=== PATIENT | female | born 2000 | race Caucasian/White ===

== ENCOUNTER 2024-12-25 11:33 | Emergency (ER) | payer BC, SELFPAY ==
[2024-12-25] VITALS (8 sets, daily range): BP systolic 118–156; BP diastolic 58–95; PULSE 84–86; BMI 25.4
[2024-12-25 11:48] LABS: Hematocrit 38.9 % (37.0-47.0); Hemoglobin 14.5 g/dL (12.0-16.0); Mean Corp Hgb Conc. 37.3 g/dL (33.0-37.0); Mean Corpuscular Volume 91.7 fL (81.0-99.0); Nucleated Red Blood Cells % 0 %; Platelet Count 186 10^3/uL (130-400); Red Cell Dist. Width 11.9 % (11.5-14.5)
[2024-12-25 12:14] LABS: HCG, Serum Qualitative Screen Negative
[2024-12-25 12:18] LABS: ALT (SGPT) 15 U/L (0-35); AST (SGOT) 22 U/L (14-36); Albumin 5.2 g/dl (3.5-5.0); Alkaline Phosphatase 55 U/L (38-126); Blood Urea Nitrogen 10 mg/dl (7-17); Calcium 10.3 mg/dl (8.4-10.2); Carbon Dioxide 22 mmol/L (22-30); Chloride 107 mmol/L (98-107); Glucose 117 mg/dl (70-99); Potassium 4.9 mmol/L (3.5-5.1); Sodium 138 mmol/L (135-145); Total Protein 8.1 g/dl (6.3-8.2); eGFR > 60.00
--- NOTE | 2024-12-25 15:04 | ED.GENMED ---
History of Present Illness
<Kavita Hayden MD, Resident - Last Filed: 12/25/24 17:02>
General
Chief Complaint: Dizziness
Source: patient
Exam Limitations: none
Time Seen by Provider: 12/25/24 15:02
Nursing documentation reviewed up to this point in time: agreed with
History of Present Illness
History of Present Illness:
24-year-old female with no significant past medical history comes to the ED due to dizziness that been going on for the past week. She says that this dizziness started this past Friday when she was at a [employer] democrat in [place]. Symptoms
started that Friday morning and persisted on the drive back. She describes that she was feeling nauseous, had diarrhea and some dizziness. The symptoms persisted throughout the week and then she ended up going to her PCP on Friday. She says
that they checked her urine and they only could find some dehydration. She says the symptoms are worse with looking down as well as while walking and when she is sitting watching TV the symptoms seem to resolve. She has not had any instances of
diarrhea or nausea since Friday. Right now she does not have any chest pain, shortness of breath, cough, any headaches, any difficulty movement. She does continue to have some dizziness.
Past History
<Kavita Hayden MD, Resident - Last Filed: 12/25/24 17:02>
Past History
ED Past Medical History: None
ED Past Surgical History: Other ([place] teeth)
Review of Systems
<Kavita Hayden MD, Resident - Last Filed: 12/25/24 17:02>
Review of Systems
Allergies reviewed?: Yes
Constitutional: Reports no symptoms
EENT: Reports no symptoms
Respiratory: Reports no symptoms
Cardiac: Reports no symptoms
ABD/GI: Reports nausea; Denies abdominal pain, vomiting or diarrhea
: Reports no symptoms
Musculoskeletal: Reports no symptoms
Skin: Reports no symptoms
Neurological: Reports dizzy; Denies headache or weakness
Endocrine: Reports no symptoms
Hematologic/Lymphatic: Reports no symptoms
Psychiatric: Reports no symptoms
Phy Exam
<Kavita Hayden MD, Resident - Last Filed: 12/25/24 17:02>
General Physical Exam
General Presentation: well appearing and mild distress
General Skin: warm and dry
General Habitus: normal
General Mental: alert
General Hydration: appears well hydrated
ENT Exam
ENT Exam: EOMI, TM's normal and normocephalic
Cardiovascular Exam
Cardiovascular Exam: regular rate/rhythm, no edema and no murmur
Pulmonary Exam
Pulmonary Exam: lungs clear, no respiratory distress, no crackles and no wheezing
Gastrointestinal Exam
Gastrointestinal Exam: normal bowel sounds, non tender, soft and non distended
Neurological Exam
Neurological Exam: alert, oriented x3, no motor deficits, no sensory deficits and speech normal
Cerebellar
Cerebellar Function: normal finger to nose, normal heel to estrella and normal Romberg test
Musculoskeletal Exam
Musculoskeletal Exam: full ROM and no edema
Skin Exam
Skin Exam: normal color and warm/dry
Psychiatric Exam
Psychiatric Exam: normal mood/affect
<Keyla Lux MD - Last Filed: 12/25/24 16:09>
Physical Exam
Physical Exam:
Physical Exam
General: no apparent distress, not acutely ill
Neck: supple.
Heart: s1/s2 regular rate and rhythm, no murmur.
Lungs: no acute respiratory distress. clear bilaterally
Abdomen: Soft, nontender
Neuro: alert and orientedx3. no focal neurological deficits. Extraocular muscles intact. Normal finger-nose. Steady gait. 5 out of 5 strength in all extremities.
Skin: no rash
Psychiatric: well kept. interactive and cooperative
Extremities: no edema. no calf tenderness. negative homans. good distal pulses
Course
<Kavita Hayden MD, Resident - Last Filed: 12/25/24 17:02>
Orders/Labs/Results
Orders:
Orders
12/25/24 11:39
Electrocardiogram (*1) Urgent
Reason for Study: Vertigo / Dizzy
EKG- Treatment ONCE
Test Result ONCE
12/25/24 11:43
Complete Blood Count/With Diff Urgent
Comprehensive Metabolic Panel Urgent
HCG, Serum Qualitative Screen Urgent
12/25/24 15:30
0.9% Sodium Chloride 500 ml [Nss] 500 ml IV BOLUS
Meclizine [Antivert] 25 mg PO NOW STA
12/25/24 16:01
Meclizine [Antivert] 25 mg PO NOW STA
12/25/24 16:02
Orthostatic VS- Treatment ONCE
Abnormal Lab Results
12/25/24
11:43
MCH 34.2 H pg
(27.0-31.0)
MCHC 37.3 H g/dL
(33.0-37.0)
Glucose 117 H mg/dl
(70-99)
Calcium 10.3 H mg/dl
(8.4-10.2)
Albumin 5.2 H g/dl
(3.5-5.0)
12/25/24 11:43
12/25/24 11:43
Vital Signs
Initial and Last Documented VS:
Initial Vital Signs
Temp Pulse Resp BP Pulse Ox
98.1 F 117 18 156/95 100
12/25/24 11:35 12/25/24 11:35 12/25/24 11:35 12/25/24 11:35 12/25/24 11:35
Last Documented Vital Signs
Temp Pulse Resp BP Pulse Ox
98.1 F 86 19 142/77 100
12/25/24 11:35 12/25/24 15:08 12/25/24 15:08 12/25/24 15:08 12/25/24 15:04
<Keyla Lux MD - Last Filed: 12/25/24 16:09>
Orders/Labs/Results
Orders:
Orders
12/25/24 11:39
Electrocardiogram (*1) Urgent
Reason for Study: Vertigo / Dizzy
EKG- Treatment ONCE
Test Result ONCE
12/25/24 11:43
Complete Blood Count/With Diff Urgent
Comprehensive Metabolic Panel Urgent
HCG, Serum Qualitative Screen Urgent
12/25/24 15:30
0.9% Sodium Chloride 500 ml [Nss] 500 ml IV BOLUS
Meclizine [Antivert] 25 mg PO NOW STA
12/25/24 16:01
Meclizine [Antivert] 25 mg PO NOW STA
12/25/24 16:02
Orthostatic VS- Treatment ONCE
Abnormal Lab Results
12/25/24
11:43
MCH 34.2 H pg
(27.0-31.0)
MCHC 37.3 H g/dL
(33.0-37.0)
Glucose 117 H mg/dl
(70-99)
Calcium 10.3 H mg/dl
(8.4-10.2)
Albumin 5.2 H g/dl
(3.5-5.0)
12/25/24 11:43
12/25/24 11:43
Vital Signs
Initial and Last Documented VS:
Initial Vital Signs
Temp Pulse Resp BP Pulse Ox
98.1 F 117 18 156/95 100
12/25/24 11:35 12/25/24 11:35 12/25/24 11:35 12/25/24 11:35 12/25/24 11:35
Last Documented Vital Signs
Temp Pulse Resp BP Pulse Ox
98.1 F 86 19 142/77 100
12/25/24 11:35 12/25/24 15:08 12/25/24 15:08 12/25/24 15:08 12/25/24 15:04
<Kavita Hayden MD, Resident - Last Filed: 12/25/24 17:02>
MDM/Problems Addressed
Differential Diagnosis Includes:
Vertigo, orthostatic hypotension, anemia, dehydration, electrolyte imbalance
MDM/Problems Addressed:
24-year-old female with no significant past medical history comes to the ED due to dizziness has been going on for the past week since Friday.
EKG normal sinus rhythm
CBC and CMP normal, no acute abnormality seen
test negative
Neurological exam negative for any cerebellar findings, was able to ambulate without issue, alongside finger-nose test was okay [id number] test was okay.
Will give IV fluids and 50 mg of Meclizine to see if that helps with her symptoms.
Symptoms have improved following medications and IV fluids
Patient will have to follow up with Physical Therapy in the outpatient setting for vestibular therapy for her BPPV.
Will give a script for Meclizine for management of symptoms.
<Keyla Lux MD - Last Filed: 12/25/24 16:09>
MDM/Problems Addressed
Differential Diagnosis Includes:
Benign positional vertigo, CVA, orthostatic hypotension, anemia, dehydration, electrolyte imbalance
<Kavita Hayden MD, Resident - Last Filed: 12/25/24 17:02>
*Pulse Oximetry
SaO2: 100
Oxygen Mode of Delivery: Room air
Patient hypoxic: no
*Critical Care Note
Total Time (30-74mins, 75-104mins- exclusive of procedures): Not Applicable
<Keyla Lux MD - Last Filed: 12/25/24 16:09>
*Machine Or Machinery Mechanic Interpretation
Rate: normal
Interpretation: normal
Rhythm: sinus
Data Reviewed
Source: patient
ED Attending Note
<Kavita Hayden MD, Resident - Last Filed: 12/25/24 17:02>
-
Portions of this chart may have been created with voice recognition software.� Occasional wrong word or��sound alike� substitutions may have occurred due to the inherent limitations of voice recognition software.
<Keyla Lux MD - Last Filed: 12/25/24 16:09>
ED Attending Note
I performed a history and physical exam of patient and discussed management with resident, I reviewed resident's note and agree with documented findings and plan of care.: Yes
ED Attending Note:
Patient appears well and comfortable. She has a normal neurological exam. She has a steady gait. She describes that movement makes her equilibrium feel off and it is associated with nausea. Additionally, patient reports that on the car ride
here, her symptoms were very much exacerbated. I feel it is likely she has acute benign positional vertigo. Given she has a normal neurological exam, it is unlikely she has a stroke. Patient will be given meclizine and will be encouraged to
follow-up with vestibular physical therapy if symptoms persist.
Discharge Plan
Departure
Patient Disposition: Home (Routine Discharge)
Date of Disposition: 12/25/24
Time of Disposition: 17:02
Patient with high blood pressure during this ER visit?: Yes
Consults for patient: Physical Therapy
Condition: Good
Covid-19: Not Applicable
Discharge Problem:
Vertigo
Instructions: Vertigo (a Type of Dizziness) (DC), BLOOD PRESSURE
Prescriptions:
New
meclizine 25 mg tablet
25 mg PO DAILY PRN (Reason: dizziness) Qty: 30 0RF
Referrals:
Amber Joseph CRNP [Family Provider, Family Practice]
Activity Restrictions/Additional Instructions:
As discussed, please take Meclizine 25mg as needed to help manage your Vertigo symptoms.
You were give information to help you get an appointment for Balance/Vestibular Physical Therapy at [facility]. Please call [phone] to set up an appointment.
If your symptoms worsen and you develop light headedness, chest pain, shortness of breath, worsening headaches, or any numbness/diffculty walking, please return to the ED for further management.
Interventions
Interventions:
*Risk Screen - Suicide Last Done: 12/25/24 11:35
*General Assessment Last Done: 12/25/24 11:35
*Neglect/Abuse Screening Last Done: 12/25/24 11:35
*ED- Fall Risk Assessment Last Done: 12/25/24 15:09
*ED COVID-19 Vaccine History Last Done: 12/25/24 15:09
ED- Neurological Assessment Last Done: 12/25/24 15:33
ED Swallowing Screen Last Done: 12/25/24 15:35
Discharge Date and Time
Print Language: JAPANESE
[2024-12-25] MEDS: ANTIVERT 25 MG PO ×2 (15:37→16:04)
[2024-12-25] MEDS: NSS 500 IV (15:37)
== END 2024-12-25 17:38 | disposition home or self-care (01) ==
LOC: EMR 11:33
PROVIDERS: Emergency Medicine; EMERGENCY PHYSICIAN Emergency Medicine; FAMILY PHYSICIAN Nurse Practitioner Family
DX: R42 Dizziness and giddiness (principal); R11.0 Nausea
CPT/HCPCS: 99284; 80053; 84703; 85025; 93005